=== PATIENT | female | born 1985 | race Caucasian/White ===

== ENCOUNTER 2019-02-20 11:08 | Emergency (ER) | payer OTHER ==
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
[2019-02-20] MEDS ORDERED: DEXAMETHASONE 10 MG/ML VIAL PO STA (13:32)
[2019-02-20] MEDS ORDERED: CHERRY SYRUP 10 ML UDC PO ONE (13:32)
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
[2019-02-20 14:48] VITALS: BP 148/90
== END 2019-02-20 14:47 | disposition home or self-care (01) ==
LOC: ED 11:08
DX: R51 Headache (principal); S00.83XA Contusion of other part of head, initial encounter; S09.92XA Unspecified injury of nose, initial encounter; W50.0XXA Accidental hit or strike by another person, initial encounter
CPT/HCPCS: 70486; 99283; A9270

== ENCOUNTER 2020-05-27 15:34 | Outpatient (CLI) | payer OTHER ==
[2020-05-27 16:06] VITALS: BP 141/87
--- NOTE | 2020-05-27 16:06 | SLEEP CARE CONSULTATION ---
Information from patient questionnaire entered by Micah Hough. I have reviewed and concur with the information entered by Micah Hough. This document represents the service I personally performed and the decisions made by me, Phyllis Delacruz ARNP. History of Present Illness Service Date and Time: 05/27/2020 1534 Reason for Visit: New patient Chief Complaint: reports: Unrefreshed sleep, Snoring, Excessive daytime sleepiness, Frequent awakenings at night. denies: Observed pauses in breathing Date of Onset: 2 + years Usual bedtime: 10:30 - 11:00 Time it takes to fall asleep: 30 min Snores at night: Yes Observed to quit breathing while asleep: No Sleeps alone due to snoring: No Number of times waking at night: 2 - 4 times Reasons for waking at night: reports: Snoring, Pain, Other (unknown). denies: Choking, Gasping for air Toss, Turn, or Twitch while sleeping: Yes Recalls having dreams: No Usually gets out of bed at: 6:00-7:00 Feels refreshed in the morning: No Morning headache: Yes (most mornings, severe; last through mornings to noon) Sleepy or fatigued during the day: Yes Ever fallen asleep while driving: No Takes day naps: No Dreams during day naps: No Prior sleep studies: No Additional HPI information: I had the pleasure of seeing BRANDON SANCHEZ today regarding the possibility of her having a sleep disorder. Her current complaints are snoring, frequent night awakenings, unrefreshed sleep and excessive daytime sleepiness. She is in the process of getting a gastric sleeve. During the evaluation process, they asked about her sleeping issues and it was recommended she seek evaluation for sleep disturbance. She wakes up with headaches nearly every day and her has always complained of a loud snore, it can be heard through the wall. Her does not sleep in different room but he is a heavy sleeper and on CPAP. 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 Patient is and lives in [place]. Have you smoked in the past 12 months: No Alcohol use: Yes Alcohol amount and frequency: 1 - 2 drinks a month Caffeine use: Yes Caffeine amount and frequency: 1 - 2 cups a week Family History Family history of sleep disordered breathing: Yes (My mother) Family Hx Sleep Apnea: Mother: Sleep apnea - Treated Allergies and Home Medications Drug allergies reviewed: Yes (NKDA) Home medication list reviewed: Yes Allergy and home medication list: Adderall Review of Systems Weight gain over past 5 years: 20 + Cardiovascular: reports: high blood pressure Respiratory: reports: shortness of breath Gastrointestinal: reports: heartburn Neurological: reports: headaches. denies: head trauma Psychiatric: reports: anxiety, depression Ear/Nose/Throat: reports: dry mouth/throat, wisdom teeth removed. denies: injury to nose, tonsillectomy Endocrine: reports: sluggishness (tired) Musculoskeletal: reports: back pain Immunologic: denies: allergies to food or environment Physical Exam Blood Pressure: 141/87 Cuff size: wrist Heart Rate: 77 O2 Saturation: 99 Height: 5 ft 3 in Weight: 250 lb Body Mass Index: 44.2 BMI Classification: Morbidly Obese Neck circumference: 16.15 (inches) Nostrils: patent to airflow Turbinates: normal Mouth and throat: narrow oropharynx Soft palate: long Hard palate: Torus palatinus Uvula visualization: 25% Mallampati Class III Tongue: normal in size Tonsils: 2+ Chin and jaw: normal size and position Neck: normal w/o lymphadenopathy or thyromegaly Heart: regular rate and rhythm Lungs: clear bilaterally Impression and Plan 1. Suspected Obstructive Sleep Apnea-Hypopnea Syndrome, as suggested by a history of loud and irregular snoring, morning headache, frequent awakening during the night, unrefreshed sleep, cognitive impairment, and excessive daytime sleepiness. Narrow oropharynx and obesity are common predisposing factors for obstructive sleep apnea-hypopnea syndrome. I recommend proceeding to polysomnography to confirm the diagnosis and to assess severity. If the patient has significant sleep disordered breathing, a manual CPAP titration study will also be performed to find the optimal treatment pressure. I informed the patient of what the sleep studies involve and after some discussion, obtained agreement to proceed. The pathophysiology of obstructive sleep apnea-hypopnea syndrome was discussed with the patient and health risks of cardiovascular and cerebrovascular disease if not treated. AAS brochure for obstructive sleep apnea-hypopnea syndrome given and reviewed. 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 Patient agreed to plan. * Schedule polysomnography +- manual CPAP titration study and return in 1-2 weeks after the study to discuss result and initiate therapy. * Avoid long distance driving or driving when feeling sleepy. * Avoid alcohol, sedative and muscle relaxant around bedtime. * Attempt to lose weight. * Review instructions provided by trained office staff on how to prepare for the sleep study. * Return for follow-up after sleep study completed. Counseling Topics: Weight loss health impact Visit Type: In Office Time Spent with Patient (minutes): 30 Provider Statement: I spent 100% of the Face to Face Visit with the patient with greater than 50% spent counseling the patient and coordination of care.
== END 2020-05-27 15:35 | disposition home or self-care (01) ==
LOC: SC 15:34
PROVIDERS: ATTEND Nurse Practitioner Family
DX: R06.83 Snoring (principal); R51.9 Headache, unspecified; G47.8 Other sleep disorders; R41.89 Other symptoms and signs involving cognitive functions and awareness; G47.10 Hypersomnia, unspecified; E66.01 Morbid (severe) obesity due to excess calories; Z68.41 Body mass index [BMI] 40.0-44.9, adult
CPT/HCPCS: 99203; 99212

== ENCOUNTER 2020-06-17 15:55 | Outpatient (CLI) | payer OTHER | END 2020-06-17 15:56 | disposition home or self-care (01) | LOC: SC 15:55 | PROVIDERS: ATTEND Nurse Practitioner Family | DX: G47.33 Obstructive sleep apnea (adult) (pediatric) (principal); R09.02 Hypoxemia | CPT/HCPCS: 95806 ==

== ENCOUNTER 2020-06-26 13:10 | Outpatient (CLI) | payer OTHER ==
--- NOTE | 2020-06-26 13:40 | SLEEP CARE CONSULTATION ---
Information from patient questionnaire entered by Micah Hough. I have reviewed and concur with the information entered by Micah Hough. This document represents the service I personally performed and the decisions made by , Phyllis Delacruz ARNP. History of Present Illness Service Date and Time: 06/26/2020 1310 Initial [place] Sleepiness Scale score: 5 (in 2020) Current [place] Sleepiness Scale score: 5 Additional HPI information: BRANDON SANCHEZ returns for follow up and results of the recently performed home sleep study. Results: mild obstructive sleep apnea with an average AHI of 14.2 and ellyn of 88%. I explained the pathophysiology behind obstructive sleep apnea. We then spent quite a bit of time discussing different treatment options. For mild obstructive sleep apnea, surgery and oral appliance are alternatives to nasal CPAP therapy but in moderate or severe cases, nasal CPAP is the most effective and reliable treatment. Because apnea is primarily in supine position, then positional management therapy could be effective. Methods discussed such as positioning with pillows, using a T-shirt with tennis balls in the back, and shown commercial products that have a pillow format on back to prevent supine sleep. I reviewed the impact of weight changes on sleep apnea and strongly recommended losing weight. After some discussion, the patient opted to go with the nasal CPAP therapy. Nasal autoCPAP set at 4-15 cmH20 will be ordered with rationale explained. A manual titration study will be ordered if unable to find optimal pressure with office adjustments. I explained how CPAP machine works with sample devices Respironics Dreamstation and [employer]UE [employer] [id number] and what to expect when using the machine. Using CPAP every night in order to get used to it was emphasized. Patient advised to put CPAP mask on before getting into bed so as not to fall asleep without CPAP. To assist acclimation to CPAP use, it could also be used for a short time during day while reading or watching TV. The patient was instructed to call the CPAP supplier to discuss any mechanical problem that may occur. If the mask given is uncomfortable or is difficult to keep on through the night even with adjustment, contact the CPAP supplier as many will replace with another mask style if notified before 30 days. If snoring or perceives is not getting enough air or too much air from the machine, notify this office. AASM patient education PAP tips reviewed and given to patient. Patient counseled not drink alcohol less than 4 hours before bedtime as it can increase snoring and apnea. Patient was cautioned about risks of drowsy driving until sleepiness symptoms resolve. Sleep Study - Results Type of Sleep Study: Home sleep study Prior sleep studies: No Polysomnography/Home Sleep Study results: Physician Impression: The quality of the study is good. The length of the study is adequate (> 240 minutes). Please also see the tabulated and graphic data. 1. Obstructive Sleep Apnea-Hypopnea (ICD-10 G47.33), mild, with an AHI of 14.2 /hr and ellyn SaO2 of 88%. During the study, the patient had 46 apneas (46 obstructive, 0 central, 0 mixed) and 46 hypopneas. The longest episode lasted 51.0 seconds. The respiratory events occurred most frequently during supine sleep (supine AHI was 125.0 and non-supine, 9.18). 2. Hypoxemia (ICD-10 R09.02), minimal, with the lowest oxygen saturation of 88 % and 0.4 minutes with SaO2 under 90%. Baseline oxygen saturation was normal (Average oxygen saturation was 95%). Allergies and Home Medications Home medication list reviewed: Yes (no changes) Review of Systems Review of systems same as previous: Yes (no changes) Physical Exam Heart Rate: 78 O2 Saturation: 98 Height: 5 ft 3 in Weight: 247 lb Body Mass Index: 43.7 BMI Classification: Morbidly Obese Impression and Plan 1. Obstructive Sleep Apnea-Hypopnea Syndrome, mild, with lowest oxygen saturation of 88%. Obviously this is the cause of the patients symptoms of unrefreshed sleep, and excessive daytime sleepiness. Positive pressure therapy could benefit hypertension, anxiety and depression. As mentioned above, the patient will be started on nasal autoCPAP therapy with pressure set at 4-15 cmH2 O. A manual titration study will be completed if unable to find optimal treatment pressure with office adjustments. Compliance guidelines also reviewed. A copy of compliance guidelines will be given for reference at check out. Because the apnea is more severe supine, I instructed to avoid sleeping supine using pillow positioning until able to start CPAP use. * Nasal auto CPAP therapy, pressure at 4-15 cm H2O. * Attempt to lose weight. * Avoid alcohol consumption near bedtime. * Avoid supine sleep until using CPAP. * The patient is again cautioned about driving until sleepiness completely resolves. * Return one month after CPAP obtained. I will assess response to therapy and compliance at that time. Counseling Topics: Weight loss health impact Visit Type: In Office Time Spent with Patient (minutes): 20 Provider Statement: I spent 100% of the Face to Face Visit with the patient with greater than 50% spent counseling the patient and coordination of care.
== END 2020-06-26 13:11 | disposition home or self-care (01) ==
LOC: SC 13:10
PROVIDERS: ATTEND Nurse Practitioner Family
DX: G47.33 Obstructive sleep apnea (adult) (pediatric) (principal); E66.01 Morbid (severe) obesity due to excess calories; Z68.41 Body mass index [BMI] 40.0-44.9, adult
CPT/HCPCS: 99212; 99213

== ENCOUNTER 2022-05-26 14:36 | Outpatient (CLI) | payer OTHER ==
--- NOTE | 2022-05-26 15:39 | SLEEP CARE CONSULTATION ---
Information from patient questionnaire entered by Miranda Shaw. I have reviewed and concur with the information entered by Miranda Shaw. This document represents the service I personally performed and the decisions made by me, Phyllis Delacruz ARNP. History of Present Illness Service Date and Time: 05/26/2022 1436 Previous diagnosis: Mild, Obstructive Sleep Apnea-Hypopnea Syndrome AHI: 14.2 (in 06/2020) Reason for follow up: first compliance Equipment type: CPAP (RESMED Airsense 10 s/u 07/2020) Equipment obtained from: Other ([facility]; getting supplies) Mask style: Full face Backup mask available: Yes (other mask) Prior sleep studies: No Type of Sleep Study: Home sleep study HPI additional information: BRANDON SANCHEZ was diagnosed to have mild, AHI 14.2, obstructive sleep apnea- hypopnea syndrome and returned today for CPAP therapy first compliance follow- up. Sleep Study - Results Type of Sleep Study: Home sleep study Prior sleep studies: No CPAP Compliance Data - Data Reviewed with Patient Average duration of nightly device use: 6 hours 43 minutes Compliance rate %: 30 (/ days used; initial period 87%) Current pressure setting (cmH2O): 4-15 (avg 8.5, max 10.0) Average residual AHI: 2.2 (initial 2.4) Central apnea: 1.1 Obstructive apnea: 0.5 Average large leak: 0.4 L/min Subjective Patient concerns: reports: mask discomfort, other (headaches). denies: aerophagia, air blowing in eyes, mask leak noise, condensation in mask/hose, nasal congestion, dry mouth, nose, throat, epistaxis Observed to snore while using device: No Current pressure setting perceived as: comfortable On therapy, patient: reports: sleeping better, awakening more refreshed, being more awake and alert during the day, more rested overall. denies: drowsiness while driving Initial [place] Sleepiness Scale score: 5 (in 2020) Current [place] Sleepiness Scale score: 0 (05/26/22) Allergies and Home Medications Known drug allergies: No Drug allergies reviewed: Yes (NKDA) Home medication list reviewed: Yes (no changes) Review of Systems Review of systems same as previous: No (Gastric Sleeve Jan 06 2021) Physical Exam Vital signs obtained and entered by: MIRANDA Fay MA Blood Pressure: 140/90 (left arm) Cuff size: regular Heart Rate: 108 O2 Saturation: 97 Height: 5 ft 3 in Weight: 193 lb 12.8 oz Weight change since last visit: 54 lb loss Body Mass Index: 34.3 BMI Classification: Obese Impression and Plan 1. Obstructive Sleep Apnea-Hypopnea Syndrome, mild, with poor treatment compliance and good apnea control. On CPAP therapy, the patient has better sleep quality and is more rested overall. She has been having headaches when she uses her CPAP. She had a gastric sleeve procedure and lost about 54 pounds since January 2021. The patients pressure will be changed to autoCPAP 6-8 cmH20 to reflect pressure being used and to reduce headaches. Patient advised to contact me if pressure change is uncomfortable so that it can be adjusted. Goals for apnea control discussed. Patient's apnea severity and rationale for treatment to reduce apnea, improve sleep quality and reduce cardiovascular and cerebrovascular events was reviewed. I also reviewed the benefit of consistent device use of CPAP for hypertension, depression and anxiety. 2. Obesity, unspecified. Currently patients BMI is 34.3. Patient has lost weight, 54 pounds, since her last visit after having a gastric sleeve procedure. Obesity increases the risk of apnea, CPAP pressure requirements and overall health risks especially cardiovascular and diabetes. Thus patient is advised to continue to try to lose weight. * Change auto CPAP pressure at 6-8 cmH2O * Sleep study to re-verify diagnosis and severity after significant weight loss * Notify me if snoring with mask or feeling that the pressure is too much or too little * Attempt to lose weight * Call this office if any problems using CPAP * Return for follow up after sleep study is completed, or sooner if concerns ar ise Counseling Topics: Spare mask, Weight loss health impact Visit Type: In Office Time Spent with Patient (minutes): 25 Provider Statement: I spent 100% of the Face to Face Visit with the patient with greater than 50% spent counseling the patient and coordination of care.
[2022-05-26 15:48] VITALS: BP 140/90
== END 2022-05-26 14:37 | disposition home or self-care (01) ==
LOC: SC 14:36
PROVIDERS: ATTEND Nurse Practitioner Family
DX: G47.33 Obstructive sleep apnea (adult) (pediatric) (principal); E66.9 Obesity, unspecified; Z68.34 Body mass index [BMI] 34.0-34.9, adult
CPT/HCPCS: 99212; 99213

== ENCOUNTER 2022-07-06 09:25 | Outpatient (CLI) | payer OTHER | END 2022-07-06 09:26 | disposition home or self-care (01) | LOC: SC 09:25 | PROVIDERS: ATTEND Nurse Practitioner Family | DX: G47.33 Obstructive sleep apnea (adult) (pediatric) (principal) | CPT/HCPCS: 95806 ==

== ENCOUNTER 2022-07-28 15:42 | Outpatient (CLI) | payer OTHER ==
--- NOTE | 2022-07-28 16:01 | SLEEP CARE CONSULTATION ---
Information from patient questionnaire entered by Fatou Shaw. I have reviewed and concur with the information entered by Fatou Shaw. This document represents the service I personally performed and the decisions made by , Phyllis Delacruz ARNP. History of Present Illness Service Date and Time: 07/28/2022 154 Initial Parker Sleepiness Scale score: 5 (in 2020) Current Parker Sleepiness Scale score: 0 (07/28/22) Additional HPI information: BRANDON SANCHEZ returns for follow up and results of the recently performed home sleep study. The patient was informed of the following findings: No significant sleep disordered breathing with an average AHI of 3.5 and ellyn oxygen saturation of 94%. Patient did not sleep supine, so significant sleep disordered breathing supine cannot be ruled out. I explained the pathophysiology behind obstructive sleep apnea. Patient does not have sleep apnea and was advised how weight gain could increase the risk of developing sleep apnea in the future. [I strongly encouraged the patient to lose weight]. [Patient has [moderate] snoring. Snoring can be reduced by weight loss. Weight loss is best achieved with diet consult. Patient instructed to contact PCP for referral. Snoring can also be treated with an oral appliance from a dentist. Advised to check insurance coverage. In addition, an ENT evaluation can be do to see if other treatment is indicated.] [Patient counseled not drink alcohol less than 4 hours before bedtime as it can increase snoring and apnea. ][Patient does not drink alcohol. ] Patient was cautioned about risks of drowsy driving until sleepiness symptoms resolve. [Patient denies drowsy driving. ][AAS patient education on snoring and sleep apnea given and reviewed.] Sleep Study - Results Type of Sleep Study: Polysomnography (COMPLETED 07/06/22) Prior sleep studies: No Polysomnography/Home Sleep Study results: Physician Impression: The quality of the study is good. The length of the study is adequate (> 240 minutes). Please also see the tabulated and graphic data. 1. No significant sleep disordered breathing, with an AHI of 3.5/hr and ellyn SaO2 of 94%. During the study, the patient had 11 apneas (11 obstructive, 0 central, 0 mixed) and 4 hypopneas. The longest episode lasted 51.0 seconds. The patient did not sleep supine during this study (most of the night the body position was labeled as unknown). Allergies and Home Medications Known drug allergies: No Drug allergies reviewed: Yes Home medication list reviewed: Yes (no changes) Allergy and home medication list: Allergies No Known Drug Allergies Allergy (Verified 07/27/22 15:14) Review of Systems Review of systems same as previous: Yes (no changes) Physical Exam Vital signs obtained and entered by: FATOU Fay MA Blood Pressure: 146/98 (LEFT ARM) Cuff size: regular Heart Rate: 73 O2 Saturation: 100 Height: 5 ft 3 in Weight: 194 lb 6.4 oz Body Mass Index: 34.4 BMI Classification: Obese Impression and Plan Snoring but no significant sleep disordered breathing. However, she did not sleep supine during the study so sleep disordered breathing during supine sleep cannot be ruled out. She was advised to avoid supine sleep since her last sleep study showed extremely severe AHI when supine. She voiced understanding and agreement with plan. I will discontinue CPAP and she will do positional therapy. She states she sleep non-supine naturally. I also advised that she continue to lose weight because weight gain could increase her apneas. She voiced understanding. Patient advised that often weight loss will reduce snoring as well as apnea risk. An oral appliance can also be used for snoring. This would require a dental consultation. Patient cautioned not to use other online appliances as can cause bite issues. A list of accredited dentists in [facility] and one local dentist who makes oral appliances is available in office as needed. Patient is advised to check if insurance will cover. An ENT consult can also be helpful to determine if any other treatment is an option. * Discontinue CPAP * Continue to try to lose weight * Avoid alcohol consumption near bedtime * The patient is cautioned about driving until sleepiness is completely resolved. * Return as needed for follow up. Counseling Topics: Weight loss health impact Visit Type: In Office Time Spent with Patient (minutes): 15 Provider Statement: I spent 100% of the Face to Face Visit with the patient with greater than 50% spent counseling the patient and coordination of care.
[2022-07-28 16:02] VITALS: BP 146/98
== END 2022-07-28 15:43 | disposition home or self-care (01) ==
LOC: SC 15:42
PROVIDERS: ATTEND Nurse Practitioner Family
DX: R06.83 Snoring (principal); E66.9 Obesity, unspecified; Z68.34 Body mass index [BMI] 34.0-34.9, adult
CPT/HCPCS: 99212